=== PATIENT | female | born 1950 | race Caucasian/White ===

== ENCOUNTER 2016-08-02 | Outpatient (CLI) | payer MEDICARE, OTHER | END 2016-08-02 12:24 | disposition critical access hospital (66) | DX: R56.9 Unspecified convulsions (principal) | CPT/HCPCS: A0425; A0427 ==

== ENCOUNTER 2016-08-02 12:42 | Emergency (ER) | payer MEDICARE, OTHER | END 2016-08-02 15:15 | disposition home or self-care (01) | DX: G40.409 Other generalized epilepsy and epileptic syndromes, not intractable, without status epilepticus (principal) | CPT/HCPCS: 36415; 70450; 80053; 80306; 80307; 81003; 83690; 85025; 93005; 93010; 99284; 99285; G0480 ==

== ENCOUNTER 2017-05-30 10:35 | Outpatient (CLI) | payer MEDICARE, OTHER ==
--- NOTE | 2017-05-30 17:55 | CT Report ---
CT SINUSES: 05/30/2017 CLINICAL INDICATION: Pain, rhinorrhea. Axial CT images of the paranasal sinuses were obtained without contrast, following which sagittal and coronal reconstructions were performed. In accordance with CT protocol optimization, one or more of the following dose reduction techniques w ere utilized for this exam: automated exposure control, adjustment of mA and/or KV based on patient size, or use of iterative reconstructive technique. There is minimal mucosal thickening in the lateral aspect of the right maxillary sinus. The remainin g paranasal sinuses are clear. The nasal septum is midline. No osseous destruction is seen. The vi sualized orbital contents are unremarkable. IMPRESSION: MINIMAL MUCOSAL THICKENING IN THE LATERAL RIGHT MAXILLARY SINUS. JOB #: [id number] EXT JOB #:[id number]
== END 2017-05-30 10:36 | disposition home or self-care (01) ==
LOC: DI 10:35
PROVIDERS: ATTEND Family Medicine
DX: R51 Headache (principal); J34.89 Other specified disorders of nose and nasal sinuses
CPT/HCPCS: 70486

== ENCOUNTER 2017-07-04 07:21 | Outpatient (CLI) | payer MEDICARE, OTHER ==
--- NOTE | 2017-07-05 08:57 | Ultrasound Report ---
DATE OF SERVICE: 07/04/2017 THYROID ULTRASOUND: 07/04/2017 COMPARISON: None INDICATION: Neoplasm of unspecified origin. Endocrine in nature. TECHNIQUE: Sonographic evaluation of the thyroid was performed. FINDINGS: Background thyroid echogenicity appears normal. There is a dominant nodule in the lower left thyroid that measures 2.0 cm. It is predominantly solid and has internal color Doppler flow. There is a 7 mm solid nodule in the isthmus. The right lobe appears otherwise grossly unremarkable. RIGHT LOBE: 5.1 x 1.5 x 1.3 cm, volume 5 mL. LEFT: 5.2 x 1.6 x 1.5 cm, volume 7 mL. IMPRESSION: Dominant left thyroid nodule appears amenable to ultrasound-guided FNA. TD: 07/04/2017 19:41 MTDD
== END 2017-07-04 07:22 | disposition home or self-care (01) ==
LOC: DI 07:21
PROVIDERS: ATTEND Otolaryngology
DX: E04.1 Nontoxic single thyroid nodule (principal)
CPT/HCPCS: 76536

== ENCOUNTER 2018-11-26 18:41 | Emergency (ER) | payer MEDICARE, OTHER ==
--- NOTE | 2018-11-26 19:49 | ED Physician Documentation ---
PD HPI LOWER EXT INJURY - Stated complaint Stated Complaint: GLF-HIP PX - Chief complaint Chief Complaint: General - History obtained from History obtained from: Patient - History of Present Illness PD HPI LOW EXT INJURY LOCATION: Right, Hip, Buttock Type of injury: Fall (tripped and fell in garage, landing to right lateral hip/buttock area. Pain with getting up and with walking.) Where injury occurred: Home Timing - onset: Today Timing - duration: Hours Timing - details: Abrupt onset, Still present Improved by: Rest Worsened by: Moving, Palpating, Other (walking) Associated symptoms: Tingling (briefly on the lateral thigh to anteroletaral lower leg, but only for few minutes after fall. Normal now.). No: Weakness, Numbness Similar symptoms before: Has not had sx before Review of Systems Nose: denies: Rhinorrhea / runny nose, Congestion Throat: denies: Sore throat Respiratory: denies: Cough GI: denies: Abdominal Pain, Nausea, Vomiting Musculoskeletal: denies: Neck pain, Back pain PD PAST MEDICAL HISTORY - Past Medical History Cardiovascular: None Respiratory: None Neuro: None Endocrine/Autoimmune: None Psych: Depression Musculoskeletal: None - Past Surgical History Past Surgical History: No - Present Medications Home Medications: Ambulatory Orders Medication Instructions Recorded Confirmed Escitalopram [Lexapro] 02/19/16 Hydrocodone/Acetaminophen [[place] 1 each PO Q6H PRN #15 tablet 11/26/18 5-325 Tablet] Naproxen 500 mg PO BID #20 tablet 11/26/18 - Allergies Allergies/Adverse Reactions: Allergies Allergy/AdvReac Type Severity Reaction Status Date / Time No Known Drug Allergies Allergy Verified 11/26/18 18:47 - Social History Does the pt smoke?: No Smoking Status: Never smoker Does the pt drink ETOH?: Yes - Immunizations Immunizations are current?: Yes PD ED PE NORMAL - Vitals Vital signs reviewed: Yes - General General: Alert and oriented X 3, No acute distress, Well developed/nourished - HEENT HEENT: Atraumatic - Neck Neck: Supple, no meningeal sign, No bony TTP - Respiratory Respiratory: Other (no chestwall tenderness) - Abdomen Abdomen: Soft, Non tender - Back Back: No CVA TTP, No spinal TTP - Derm Derm: Normal color, Warm and dry - Extremities Extremities: No edema, No calf tenderness / cord, Other (The right lateral hip over the greater trochanter and then posteriorly toward the gluteal area is tender without any noted bruising. There is no obvious deformity. The anterior part of the hip is not tender. There is some rotational pain of the thigh passively. There is no pain with passive impaction to the hip. She has normal sensation color and capillary refill in the toes and foot. She has a normal motor exam and patellar tendon reflexes.) Results - Vitals Vitals: Vital Signs - 24 hr 11/26/18 11/26/18 18:44 20:15 Temperature 36.4 C L Heart Rate 60 61 Respiratory 14 17 Rate Blood Pressure 143/83 H 122/77 O2 Saturation 100 99 Oxygen O2 Source Room air - Rads (name of study) right hip Radiology: Prelim report reviewed PD MEDICAL DECISION MAKING - ED course Complexity details: reviewed results, considered differential, d/w patient Departure - Departure Disposition: 01 Home, Self Care Clinical Impression: Fall from slip, trip, or stumble Qualifiers: Encounter type: initial encounter Qualified Code(s): W01.0XXA - Fall on same level from slipping, tripping and stumbling without subsequent striking against object, initial encounter Contusion, hip Qualifiers: Encounter type: initial encounter Laterality: right Qualified Code(s): S70.01XA - Contusion of right hip, initial encounter Condition: Stable Record reviewed to determine appropriate education?: Yes Instructions: ED Contusion Hip Follow-Up: LORNA BARRIOS [Primary Care Provider] - Prescriptions: Hydrocodone/Acetaminophen [[place] 5-325 Tablet] 1 each PO Q6H PRN #15 tablet PRN Reason: Pain Naproxen 500 mg PO BID #20 tablet Comments: No fracture seen on x-ray. He will be sore though likely for several days even up to week. Use cane if needed for taking some of the weight off. Try some ice tonight and then heat starting tomorrow if it is feeling stiff. Use some anti-inflammatory such as naproxen or ibuprofen twice daily. Add Tylenol if needed for pain. If still hurting, add hydrocodone if needed short- term. Recheck if not improving over the next few days or mainly better over a week. Discharge Date/Time: 11/26/18 20:34
--- NOTE | 2018-11-26 19:52 | XRAY Report ---
Reason: fall Procedure Date: 11/26/2018 Accession Number: [id number] / [id number] Procedure: XR - Hip w/Pelvis 1V RT CPT Code: FULL RESULT: EXAM: RIGHT HIP RADIOGRAPHY EXAM DATE: 11/26/2018 07:18 PM. CLINICAL HISTORY: Fall. COMPARISON: None. TECHNIQUE: 2 views. FINDINGS: Bones: No acute fractures or suspicious bone lesions. Joints: No subluxations. Soft Tissues: Unremarkable. IMPRESSION: No acute radiographic abnormalities. RADIA
[2018-11-26] MEDS ORDERED: ACETAMINOPHEN 325 MG TABLET PO STA (20:00)
[2018-11-26] MEDS ORDERED: NAPROXEN 250 MG TABLET PO STA (20:00)
[2018-11-26] MEDS ORDERED: HYDROcod/ACET 5/325 Prepack 4 PO STA (20:13)
[2018-11-26 20:16] VITALS: BP 122/77
== END 2018-11-26 20:34 | disposition home or self-care (01) ==
LOC: ED 18:41
DX: S70.01XA Contusion of right hip, initial encounter (principal); W01.0XXA Fall on same level from slipping, tripping and stumbling without subsequent striking against object, initial encounter; Y92.008 Other place in unspecified non-institutional (private) residence as the place of occurrence of the external cause
CPT/HCPCS: 73501; 99283; A9270

== ENCOUNTER 2020-01-19 09:00 | Outpatient (CLI) | payer MEDICARE, OTHER | END 2020-01-19 23:59 | disposition home or self-care (01) | LOC: COV 09:00 | PROVIDERS: ATTEND Family Medicine | DX: R05 Cough (principal); R53.83 Other fatigue; J02.9 Acute pharyngitis, unspecified; R09.81 Nasal congestion; Z20.828 Contact with and (suspected) exposure to other viral communicable diseases ==

== ENCOUNTER 2020-03-27 11:19 | Emergency (ER) | payer MEDICARE, OTHER ==
[2020-03-27] MEDS ORDERED: BUFFERED LIDOCAINE 10 ML SYRINGE SUBQ STA (12:01)
--- NOTE | 2020-03-27 12:19 | ED Physician Documentation ---
PD HPI UPPER EXT INJURY - Stated complaint Stated Complaint: RT FINGERS INJ - Chief complaint Chief Complaint: Laceration - History obtained from History obtained from: Patient - Additonal information Additional information: She was walking her dog and the dog pulled to emily a chipmunk. The leash buckle lacerated her on the tip of the third finger and on the pulp of the first finger. Tetanus is up-to-date. Review of Systems Constitutional: reports: Reviewed and negative Eyes: reports: Reviewed and negative Ears: reports: Reviewed and negative Nose: reports: Reviewed and negative PD PAST MEDICAL HISTORY - Past Medical History Cardiovascular: None Respiratory: None Neuro: None Endocrine/Autoimmune: None Psych: Depression Musculoskeletal: None - Past Surgical History Past Surgical History: No - Present Medications Home Medications: Ambulatory Orders Medication Instructions Recorded Confirmed Escitalopram [Lexapro] 02/19/16 Hydrocodone/Acetaminophen [[place] 1 each PO Q6H PRN #15 tablet 11/26/18 5-325 Tablet] Naproxen 500 mg PO BID #20 tablet 11/26/18 - Allergies Allergies/Adverse Reactions: Allergies Allergy/AdvReac Type Severity Reaction Status Date / Time No Known Drug Allergies Allergy Verified 03/27/20 11:44 - Social History Does the pt smoke?: No Smoking Status: Never smoker Does the pt drink ETOH?: Yes - Immunizations Immunizations are current?: Yes PD ED PE NORMAL - Vitals Vital signs reviewed: Yes - General General: Alert and oriented X 3, No acute distress - Extremities Extremities: Other (On the pulp of the thumb distally there is a 1.5 cm shallow laceration just into subcutaneous fat without distal neurovascular compromise. On the tip of the third finger there is a shallow 8 mm laceration not involving the nail.) - Neuro Neuro: Alert and oriented X 3, Normal speech Results - Vitals Vitals: Vital Signs - 24 hr 03/27/20 11:46 Temperature 36.7 C Heart Rate 76 Respiratory 16 Rate Blood Pressure 129/76 O2 Saturation 96 Oxygen O2 Source Room air Procedures - Laceration (location) R 3rd finger Length in cm: 0.8 Wound type: Linear, Superficial Neurovascular status: Sensory intact, Motor intact, Vascular intact Wound Preparation: Irrigated copiously NS Skin layer closure: Dermabond Other: Tetanus UTD Complexity: Simple R thumb Length in cm: 1.5 Wound type: Linear, Into subcut fat Neurovascular status: Sensory intact, Motor intact, Vascular intact Tendon involvement: Tendon intact Anesthesia: Lidocaine 1%, With bicarb Wound Preparation: Irrigated copiously NS Skin layer closure: Nylon, Interrupted, Size #-0 - enter number (5-0), Sutures - enter # (4) Other: Tetanus UTD Complexity: Simple Departure - Departure Disposition: 01 Home, Self Care Clinical Impression: Laceration of right hand Qualifiers: Encounter type: initial encounter Foreign body presence: without foreign body Qualified Code(s): S61.411A - Laceration without foreign body of right hand, initial encounter Condition: Good Record reviewed to determine appropriate education?: Yes Instructions: ED Laceration Hand Comments: Come back for any signs of infection which would include: Redness, swelling, drainage, increased pain, or fevers. You can wash it soap and water. Keep it covered and moist with bacitracin ointment which is available over the counter; avoid neosporin. Follow-up with your physician in about 14 days for suture removal.
[2020-03-27 12:39] VITALS: BP 148/84
== END 2020-03-27 12:39 | disposition home or self-care (01) ==
LOC: ED 11:19
DX: S61.011A Laceration without foreign body of right thumb without damage to nail, initial encounter (principal); S61.212A Laceration without foreign body of right middle finger without damage to nail, initial encounter; W45.8XXA Other foreign body or object entering through skin, initial encounter; W22.8XXA Striking against or struck by other objects, initial encounter; Y93.K1 Activity, walking an animal
CPT/HCPCS: 12001; 12011; 99282; 99283

== ENCOUNTER 2020-04-02 16:36 | Emergency (ER) | payer MEDICARE, OTHER ==
[2020-04-02 16:51] VITALS: BP 109/70
[2020-04-02] MEDS ORDERED: TETANUS/DIPHTHERIA/PERTUSSIS 0.5 ML SYRINGE IM ONE (17:38)
[2020-04-02] MEDS ORDERED: BACITRACIN ZINC OINT 1 PACKET TOP STA ×2 (17:38→18:11)
[2020-04-02] MEDS ORDERED: LIDOCAINE-EPINEPH-TETRACAINE 3 ML SYRINGE TOP STA (17:38)
--- NOTE | 2020-04-02 17:45 | ED Physician Documentation ---
PD HPI UPPER EXT INJURY - Stated complaint Stated Complaint: GLF - RT ARM INJURY - Chief complaint Chief Complaint: Trauma Ext - History obtained from History obtained from: Patient - History of Present Illness Location: Right Where injury occurred: Home Pain level max: 3 Pain level now: 1 Improved by: Rest Worsened by: Moving Associated symptoms: No: Numbness, Tingling Contributing factors: No: Anticoagulated Recently seen: Not recently seen - Additonal information Additional information: 70-year-old female states that she scraped her right arm across a log today creating a skin tear to the right forearm. Unknown last tetanus shot. No numbness or tingling. Not anticoagulated. Patient is right-handed. Review of Systems Constitutional: denies: Fever, Chills Musculoskeletal: denies: Neck pain, Back pain Neurologic: denies: Head injury PD PAST MEDICAL HISTORY - Past Medical History Cardiovascular: None Respiratory: None Neuro: None Endocrine/Autoimmune: None Psych: Depression Musculoskeletal: None - Past Surgical History Past Surgical History: No - Present Medications Home Medications: Ambulatory Orders Medication Instructions Recorded Confirmed Escitalopram [Lexapro] 02/19/16 Bacitracin Zinc Oint 1 applic TOP BID #1 tube 04/02/20 Cyclobenzaprine [Flexeril] 10 mg PO TID PRN #10 tablet 04/02/20 Meloxicam [Mobic] 7.5 mg PO BID PRN #20 tablet 04/02/20 - Allergies Allergies/Adverse Reactions: Allergies Allergy/AdvReac Type Severity Reaction Status Date / Time No Known Drug Allergies Allergy Verified 04/02/20 16:47 - Social History Does the pt smoke?: No Smoking Status: Never smoker Does the pt drink ETOH?: Yes - Immunizations Immunizations are current?: Yes PD ED PE NORMAL - Vitals Vital signs reviewed: Yes - General General: Alert and oriented X 3, No acute distress - HEENT HEENT: Atraumatic, PERRL, Moist mucous membranes - Neck Neck: Supple, no meningeal sign, No bony TTP, Other (Full range of motion.) - Respiratory Respiratory: No respiratory distress, Clear bilaterally - Abdomen Abdomen: Soft, Non tender, Non distended - Derm Derm: Warm and dry - Extremities Extremities: Other (r forearm - 2 x 4 cm skin avulsion to the right forearm. No active bleeding. Neurovascular intact. No bony tenderness. No ligamentous injury. Neurovascular intact. 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 Mepitel was applied over the wound, bacitracin was then applied over the Mepitel and the wound was bandaged. Patient tolerated well. Tdap given. There is no laceration to repair. Much of the skin is missing. Will need to heal by secondary intention. She will likely need wound care as well. Patient counseled regarding signs and symptoms for which I believe and urgent re-evaluation would be necessary. Patient with good understanding of and agreement to plan and is comfortable going home at this time This document was made in part using voice recognition software. While efforts are made to proofread this document, sound alike and grammatical errors may occur. Patient also stated that her neck was sore from a few days ago, requesting a short course of muscle relaxants and anti-inflammatories. No midline tenderness. No step-off or deformity. Departure - Departure Disposition: 01 Home, Self Care Clinical Impression: Skin avulsion Neck strain Qualifiers: Encounter type: initial encounter Qualified Code(s): S16.1XXA - Strain of muscle, fascia and tendon at neck level, initial encounter Condition: Good Instructions: ED Wound Care Follow-Up: Elsy Fairchild PA-C [Primary Care Provider] - Within 1 week Prescriptions: Bacitracin Zinc Oint 1 applic TOP BID #1 tube Cyclobenzaprine [Flexeril] 10 mg PO TID PRN #10 tablet PRN Reason: Spasms Meloxicam [Mobic] 7.5 mg PO BID PRN #20 tablet PRN Reason: Pain Comments: Return if you worsen. Follow-up with your doctor in about 1 week for a wound check. The Mepitel can stay in place until the wound check. Return if you notice redness, swelling or drainage from the wound. Do not drive or operate heavy machinery while taking the Flexeril. Discharge Date/Time: 04/02/20 18:23
== END 2020-04-02 18:23 | disposition home or self-care (01) ==
LOC: ED 16:36
DX: S51.811A Laceration without foreign body of right forearm, initial encounter (principal); S16.1XXA Strain of muscle, fascia and tendon at neck level, initial encounter; W19.XXXA Unspecified fall, initial encounter; Y92.009 Unspecified place in unspecified non-institutional (private) residence as the place of occurrence of the external cause; Z23 Encounter for immunization
CPT/HCPCS: 90471; 90715; 99283; 99284; A9270

== ENCOUNTER 2022-01-07 17:27 | Emergency (ER) | payer MEDICARE, OTHER ==
[2022-01-07 17:38] VITALS: BP 122/68
--- NOTE | 2022-01-07 17:48 | ED Physician Documentation ---
PD HPI LOWER EXT INJURY - Stated complaint Stated Complaint: FALL/LT KNEE PX - Chief complaint Chief Complaint: Trauma Ext - History obtained from History obtained from: Patient, Family - History of Present Illness PD HPI LOW EXT INJURY LOCATION: Left - Additional information Additional information: 71-year-old woman slipped on a slippery scarf and hit her left knee on the ground and had an eversion injury of the left foot. This happened just prior to arrival. No other injuries. Declines pain medication on initial evaluation. She is able to walk and bear weight. Review of Systems Constitutional: reports: Reviewed and negative Cardiac: reports: Reviewed and negative Respiratory: reports: Reviewed and negative PD PAST MEDICAL HISTORY - Past Medical History Cardiovascular: None Respiratory: None Neuro: None Endocrine/Autoimmune: None Psych: Depression Musculoskeletal: None - Past Surgical History Past Surgical History: No - Present Medications Home Medications: Ambulatory Orders Medication Instructions Recorded Confirmed Escitalopram [Lexapro] 20 mg PO DAILY 02/19/16 01/07/22 - Allergies Allergies/Adverse Reactions: Allergies Allergy/AdvReac Type Severity Reaction Status Date / Time No Known Drug Allergies Allergy Verified 01/07/22 17:38 - Social History Does the pt smoke?: No Smoking Status: Never smoker Does the pt drink ETOH?: Yes - Immunizations Immunizations are current?: Yes PD ED PE NORMAL - Vitals Vital signs reviewed: Yes - General General: Alert and oriented X 3, No acute distress - Neck Neck: Supple, no meningeal sign, No bony TTP - Back Back: No CVA TTP, No spinal TTP - Derm Derm: Normal color, Warm and dry - Extremities Extremities: Other (see mdm - text box too small) - Neuro Neuro: Alert and oriented X 3, Normal speech Results - Vitals Vitals: Vital Signs - 24 hr 01/07/22 17:35 Temperature 36.7 C Heart Rate 71 Respiratory 16 Rate Blood Pressure 122/68 O2 Saturation 96 Oxygen O2 Source Room air PD MEDICAL DECISION MAKING - ED course ED course: LLE exam She is mildly tender over the tibial plateau on the left and the medial joint line. ACL, LCL, MCL, PCL testing is intact and painless. Negative grind testing. She is a little tender over the mid to distal first metatarsal of the left foot without deformity. She does have some pain with range of motion of the left great toe. No other foot tenderness. Departure - Departure Disposition: 01 Home, Self Care Clinical Impression: Contusion of left knee Qualifiers: Encounter type: initial encounter Qualified Code(s): S80.02XA - Contusion of left knee, initial encounter Sprain of left foot Qualifiers: Encounter type: initial encounter Qualified Code(s): S93.602A - Unspecified sprain of left foot, initial encounter Condition: Good Record reviewed to determine appropriate education?: Yes Instructions: ED Sprain Foot Comments: Tylenol and/or ibuprofen as needed for pain, ice and elevate. Recheck with your doctor in a week if not better, return for new or worsening symptoms.
--- NOTE | 2022-01-07 18:23 | XRAY Report ---
PROCEDURE: Knee 4 View LT INDICATIONS: knee /foot inj TECHNIQUE: 4 views of the left knee(s) were acquired. COMPARISON: None. FINDINGS: Bones: No fractures or dislocations. No suspicious bony lesions. Moderate left knee medial and younger llofemoral compartment osteoarthritis. Mild lateral compartment osteoarthritis. Soft tissues: No joint effusion. No suspicious soft tissue calcifications. IMPRESSION: No fracture. No acute osseous lesion. If symptoms and/or clinical concern for pathology persists, further assessment with repeat plain film radiographs (7-10 days) or advanced imaging (CT, MR, bone scan) should be considered. Reviewed by: Sharlene Brantley MD, PhD on 01/07/2022 6:22 PM PDT Approved by: Sharlene Brantley MD, PhD on 01/07/2022 6:22 PM PDT Station ID: [id number]
--- NOTE | 2022-01-07 18:23 | XRAY Report ---
PROCEDURE: Foot 3 View LT INDICATIONS: knee /foot inj TECHNIQUE: 3 views of the foot were acquired. COMPARISON: None FINDINGS: Bones: No fractures or dislocations. No suspicious bony lesions. Soft tissues: No tibiotalar joint effusion. Achilles tendon appears normal. IMPRESSION: No fracture. No osseous lesion. If symptoms and/or clinical concern for pathology persists, further a ssessment with repeat plain film radiographs (7-10 days) or advanced imaging (CT, MR, bone scan) shou ld be considered. Reviewed by: Sharlene Brantley MD, PhD on 01/07/2022 6:21 PM PDT Approved by: Sharlene Brantley MD, PhD on 01/07/2022 6:21 PM PDT Station ID: [id number]
== END 2022-01-07 18:36 | disposition home or self-care (01) ==
LOC: ED 17:27
DX: S80.02XA Contusion of left knee, initial encounter (principal); S93.602A Unspecified sprain of left foot, initial encounter; X50.1XXA Overexertion from prolonged static or awkward postures, initial encounter
CPT/HCPCS: 99282; 99283

== ENCOUNTER 2022-01-25 07:50 | Outpatient (CLI) | payer MEDICARE, OTHER ==
--- NOTE | 2022-01-25 11:29 | DEXA Report ---
PROCEDURE: Dexa Spine and/or Hip INDICATIONS: POST MENOPAUSAL TECHNIQUE: Dual energy x-ray absorptiometry (DXA) was performed on a [employer]. Regions measur ed are the AP Spine, femoral neck, and if needed forearm. COMPARISON: None. FINDINGS: Lumbar Spine: Bone Mineral Density 1.057 g/cm/cm,T score -1.0, osteopenic. Left Hip: Bone Mineral Density 0.740 g/cm/cm,T score -2.1, osteopenic. Left Femoral Neck: Bone Mineral Density 0.713 g/cm/cm, T score -2.3, osteopenic. (T score greater or equal to -1.0: NORMAL) (T score from -1.1 to -2.4: OSTEOPENIA) (T score less than or equal to -2.5 to: OSTEOPOROSIS) Impression: Based on WHO criteria, the patient has osteopenia. Patients with diagnosis of osteoporosis or osteopenia should have regular bone mineral density assess ment. For those eligible for Medicare, routine testing is allowed once every 2 years. Testing frequ ency can be increased for patients who have rapidly progressing disease or for those who are receivin g medical therapy to restore bone mass. Reviewed by: Rgeine Gann MD on 01/25/2022 11:28 AM PDT Approved by: Regine Gann MD on 01/25/2022 11:28 AM PDT Station ID: [id number]
== END 2022-01-25 07:51 | disposition home or self-care (01) ==
LOC: DI 07:50
PROVIDERS: ATTEND Physician Assistant
DX: Z13.820 Encounter for screening for osteoporosis (principal); M85.89 Other specified disorders of bone density and structure, multiple sites

== ENCOUNTER 2022-01-25 07:54 | Outpatient (CLI) | payer MEDICARE, OTHER ==
--- NOTE | 2022-01-26 12:34 | Mammography Report ---
BILATERAL DIGITAL SCREENING MAMMOGRAM 3D/2D: 01/25/2022 CLINICAL: Routine screening. Pt hasn't had any priors since like 13 years ago so treat like baseline. No prior exams were available for comparison. The tissue of both breasts is predominantly fatty. There is a 2.6 cm x 1.2 cm oval asymmetry in the right breast at 11 o'clock anterior depth. There is an enlarged lymph node in the left breast at 2 o'clock middle depth. No other significant masses or calcifications are seen in either breast. IMPRESSION: INCOMPLETE: NEEDS ADDITIONAL IMAGING EVALUATION The 2.6 cm x 1.2 cm oval asymmetry in the right breast at 11 o'clock anterior depth is indeterminate. Additional views with possible ultrasound are recommended. The enlarged lymph node in the left breast at 2 o'clock middle depth is indeterminate. Additional vi ews with possible ultrasound are recommended. Based on the Tyrer Cuzick model (a risk assessment model) the patients lifetime risk is 5.1% and her 10 year risk is 3.8%. According to the ACR, ACS, and NCCN guidelines, an annual breast MRI exam ac g with mammogram is recommended if the patients lifetime risk is 20% or greater. This exam was interpreted at Station ID: [id number]. NOTE: For mammograms, a report in lay terms will be sent to the patient. Approximately 15% of breast malignancies will not be visualized mammographically. In the management of a palpable breast mass, a negative mammogram must not discourage biopsy of a clinically suspicious lesion. Electronically Signed By: Art James acr/:01/25/2022 09:38:03 ACR BI-RADS Category 0: Incomplete 3340F PARENCHYMAL PATTERN: (F) - The breast(s) demonstrate(s) diffuse fatty replacement. BI-RADS CATEGORY: (0) - 0 Mammo and US [id number] Immediate follow-up LATERALITY: (B)
== END 2022-01-25 07:55 | disposition home or self-care (01) ==
LOC: DI 07:54
PROVIDERS: ATTEND Physician Assistant
DX: Z12.31 Encounter for screening mammogram for malignant neoplasm of breast (principal); R92.8 Other abnormal and inconclusive findings on diagnostic imaging of breast; R59.0 Localized enlarged lymph nodes

== ENCOUNTER 2022-11-14 09:19 | Outpatient (CLI) | payer MEDICARE, OTHER ==
--- NOTE | 2022-11-14 13:46 | XRAY Report ---
PROCEDURE: Chest 2 View X-Ray INDICATIONS: CHEST TIGHTNESS TECHNIQUE: 2 views of the chest were acquired. COMPARISON: None. FINDINGS: Surgical changes and devices: None. Lungs and pleura: No pleural effusions or pneumothorax. Lungs are clear. Mediastinum: Mediastinal contours appear normal. Heart size is normal. Bones and chest wall: No suspicious bony lesions. Overlying soft tissues appear unremarkable. IMPRESSION: No acute cardiopulmonary process. Reviewed by: Lucia Garza MD on 11/14/2022 1:45 PM PDT Approved by: Lucia Garza MD on 11/14/2022 1:45 PM PDT Station ID: [id number]
== END 2022-11-14 09:20 | disposition home or self-care (01) ==
LOC: DI 09:19
PROVIDERS: ATTEND Physician Assistant
DX: R07.89 Other chest pain (principal); U09.9 Post COVID-19 condition, unspecified

== ENCOUNTER 2023-01-30 13:19 | Outpatient (CLI) | payer MEDICARE, OTHER ==
--- NOTE | 2023-01-31 09:21 | Mammography Report ---
BILATERAL DIGITAL SCREENING MAMMOGRAM 3D/2D: 01/30/2023 CLINICAL: Routine screening. Comparison is made to exams dated: 02/21/2022 mammogram and 01/25/2022 mammogram - [facility]. There are scattered areas of fibroglandular density in both breasts (category b / 25%-50% glandular t issue). No significant masses, calcifications, or other findings are seen in either breast. There has been no significant interval change. IMPRESSION: NEGATIVE There is no mammographic evidence of malignancy. A 1 year screening mammogram is recommended. Based on the Tyrer Cuzick model (a risk assessment model) the patients lifetime risk is 4.3% and her 10 year risk is 3.5%. According to the ACR, ACS, and NCCN guidelines, an annual breast MRI exam ac g with mammogram is recommended if the patients lifetime risk is 20% or greater. This exam was interpreted at Station ID: [id number]. NOTE: For mammograms, a report in lay terms will be sent to the patient. Approximately 15% of breast malignancies will not be visualized mammographically. In the management of a palpable breast mass, a negative mammogram must not discourage biopsy of a clinically suspicious lesion. Electronically Signed By: Charmaine [email or web address]/yaquelin:01/30/2023 17:13:36 letter sent: No_Letter ACR BI-RADS Category 1: Negative 3341F PARENCHYMAL PATTERN: (A) - The breast(s) demonstrate(s) scattered fibroglandular densities. BI-RADS CATEGORY: (1) - 1 Mammogram [id number] 1 year screening LATERALITY: (B)
== END 2023-01-30 13:20 | disposition home or self-care (01) ==
LOC: DI 13:19
PROVIDERS: ATTEND Internal Medicine
DX: Z12.31 Encounter for screening mammogram for malignant neoplasm of breast (principal)

== ENCOUNTER 2023-05-13 13:47 | Outpatient (CLI) | payer MEDICARE, OTHER ==
--- NOTE | 2023-05-13 16:52 | Ultrasound Report ---
PROCEDURE: Ankle Brachial Index INDICATIONS: PVD, OTHER DISORDERS OF PERIPHERAL NERVOUS SYSTEM TECHNIQUE: Ankle-brachial indices were obtained bilaterally and recorded. COMPARISONS: None. FINDINGS: Right ankle brachial index (DARÍO): 1.16 Left ankle brachial index (DARÍO): 1.12 Healing potential: Ankle pressures >55 mm Hg in non-diabetics and >80 mm Hg in diabetics are likely to achieve primary h ealing of ischemic foot ulcers. Toe pressures >30 mm Hg are likely to achieve primary healing of ischemic foot ulcers, toe or transme tatarsal amputations. IMPRESSION: Normal bilateral ankle-brachial indices. Reviewed by: To Blank MD on 05/13/2023 4:51 PM PST Approved by: To Blank MD on 05/13/2023 4:51 PM PST Station ID: [id number]
--- NOTE | 2023-05-14 07:49 | Ultrasound Report ---
PROCEDURE: Duplex Ext Veins Bilateral INDICATIONS: Evaluate for DVT. TECHNIQUE: Real-time imaging, as well as color and pulse Doppler interrogation, were performed of the deep veins of both legs from the inguinal ligament to the popliteal fossa. Attempted visualization of the calf veins was performed. COMPARISON: None. FINDINGS: The deep veins are normally compressible, and free of intraluminal thrombus. Color and pu lse Doppler demonstrate normal phasic intravascular flow. There is normal augmentation response to d istal compression maneuver. IMPRESSION: No deep venous thrombosis of the visualized lower extremities. Reviewed by: Regine Gann MD on 05/14/2023 7:48 AM PST Approved by: Regine Gann MD on 05/14/2023 7:48 AM PST Station ID: [id number]
== END 2023-05-13 13:48 | disposition home or self-care (01) ==
LOC: DI 13:47
PROVIDERS: ATTEND Nurse Practitioner Family
DX: G64 Other disorders of peripheral nervous system (principal); I73.9 Peripheral vascular disease, unspecified; I83.93 Asymptomatic varicose veins of bilateral lower extremities
CPT/HCPCS: 93922; 93970